=== PATIENT | male | born 1980 | race Caucasian/White ===

== ENCOUNTER 2022-03-19 17:32 | Emergency (ER) | payer BC ==
[~2022-03-19] VITALS: Ht 185.4 cm; Wt 76.4 kg
[2022-03-19 18:42] LABS: BASO % 0.4 % (0.0-1.0); EOS # 0.2 10^3/uL (0.0-0.5); EOS % 2.6 % (0.0-3.0); HEMATOCRIT 47.3 % (42.0-52.0); LYMPH # 1.9 10^3/uL (1.5-5.0); LYMPH % 20.2 % (24.0-44.0); MEAN CORPUSCULAR HGB CONC 31.7 g/dl (32.0-36.5); MEAN CORPUSCULAR VOLUME 88.4 fl (80.0-96.0); MONO # 0.6 10^3/uL (0.0-0.8); NEUTROPHILS # 6.6 10^3/uL (1.5-8.5); NEUTROPHILS % 70.4 % (36.0-66.0); PLATELET COUNT, AUTOMATED 292 10^3/uL (150-450); RED BLOOD COUNT 5.35 10^6/uL (4.30-6.10); WHITE BLOOD COUNT 9.4 10^3/uL (4.0-10.0)
[2022-03-19 19:15] LABS: ALT/SGPT 20 U/L (12-78); AMYLASE 54 U/L (25-115); BILIRUBIN,DIRECT 0.1 MG/DL (0.0-0.2); BILIRUBIN,TOTAL 0.4 MG/DL (0.2-1.0); BLOOD UREA NITROGEN 14 MG/DL (7-18); CALCIUM LEVEL 9.5 MG/DL (8.5-10.1); CARBON DIOXIDE LEVEL 29 MEQ/L (21-32); CHLORIDE LEVEL 105 MEQ/L (98-107); CREATININE FOR GFR 1.12 MG/DL (0.70-1.30); GLOMERULAR FILTRATION RATE > 60.0 (>60); GLUCOSE, FASTING 97 MG/DL (70-100); LIPASE 118 U/L (73-393); POTASSIUM SERUM 3.9 MEQ/L (3.5-5.1); SODIUM LEVEL 138 MEQ/L (136-145); TOTAL PROTEIN 7.3 GM/DL (6.4-8.2)
[2022-03-19] MEDS ORDERED: KETOROLAC 30 MG/ML 1ML VIAL IV ONE ×2 (20:15→21:05)
[2022-03-19] MEDS ORDERED: NS 1,000 ML IV ONE (20:15)
[2022-03-19] MEDS ORDERED: MORPHINE 4 MG/ML 1ML VIAL/SYRINGE IV ONE (21:05)
[2022-03-19] MEDS ORDERED: TAMSULOSIN 0.4 MG CAP PO ONE (21:05)
[2022-03-19] MEDS ORDERED: ONDANSETRON 4MG 2ML VIAL IV ONE (21:05)
[2022-03-19 21:52] VITALS: BP 166/98
[2022-03-19] MEDS ORDERED: FLOM0.4C39 PO (22:02)
[2022-03-19] MEDS ORDERED: KETO10TAB PO (22:02)
[2022-03-19] MEDS ORDERED: OXYCODONE/APAP 5MG/325MG(HOME DOSE PACK) PO ONE (22:05)
[2022-03-19 23:57] LABS: GC DNA AMPLIFICATION NEGATIVE (NEGATIVE)
== END 2022-03-19 22:15 | disposition home or self-care (01) ==
LOC: M ED 17:32
DX: N20.2 Calculus of kidney with calculus of ureter (principal); I10 Essential (primary) hypertension; F17.200 Nicotine dependence, unspecified, uncomplicated; F41.9 Anxiety disorder, unspecified; Z91.040 Latex allergy status
CPT/HCPCS: 74176; 80048; 80076; 81000; 81015; 82150; 83690; 85025; 87086; 87661; 87810; 87850; 96374; 96375; 99284; J1885; J2270; J2405

== ENCOUNTER → 2022-08-18 | Outpatient (CLI) | payer BC ==
[~2022-08-18] MED LIST: FLOM0.4C39 PO; KETO10TAB PO
== END ==
LOC: M PLAIMG 10:33
PROVIDERS: ATTEND Urology
DX: N20.2 Calculus of kidney with calculus of ureter (principal); R16.0 Hepatomegaly, not elsewhere classified; N28.1 Cyst of kidney, acquired; N13.30 Unspecified hydronephrosis; I70.0 Atherosclerosis of aorta

== ENCOUNTER → 2022-09-29 | Outpatient (CLI) | payer BC ==
[2022-09-29 15:55] LABS: HEMATOCRIT 49.1 % (42.0-52.0); HEMOGLOBIN 15.6 g/dl (13.5-17.5); MEAN CORPUSCULAR HEMOGLOBIN 28.4 pg (27.0-33.0); MEAN CORPUSCULAR HGB CONC 31.8 g/dl (32.0-36.5); MEAN CORPUSCULAR VOLUME 89.4 fl (80.0-96.0); PLATELET COUNT, AUTOMATED 365 10^3/uL (150-450); RED BLOOD COUNT 5.49 10^6/uL (4.30-6.10); WHITE BLOOD COUNT 10.6 10^3/uL (4.0-10.0)
[2022-09-29 16:15] LABS: ALBUMIN 4.1 G/DL (3.2-5.2); ALKALINE PHOSPHATASE 79 U/L (46-116); ALT/SGPT 14 U/L (7.0-40); AST/SGOT < 8 U/L (<34); BILIRUBIN,TOTAL 0.5 MG/DL (0.3-1.2); BLOOD UREA NITROGEN 11 MG/DL (9-23); CALCIUM LEVEL 9.8 MG/DL (8.5-10.1); CARBON DIOXIDE LEVEL 30 MMOL/L (20-31); CHLORIDE LEVEL 107 MMOL/L (98-107); CREATININE FOR GFR 1.18 MG/DL (0.70-1.30); GLOMERULAR FILTRATION RATE > 60.0 (>60); GLUCOSE, FASTING 107 MG/DL (60-100); POTASSIUM SERUM 4.5 MMOL/L (3.5-5.1); SODIUM LEVEL 144 MMOL/L (136-145); TOTAL PROTEIN 7.2 G/DL (5.7-8.2)
== END ==
LOC: M PLALAB 12:40
PROVIDERS: ATTEND Urology
DX: N20.1 Calculus of ureter (principal)

== ENCOUNTER 2024-07-24 20:40 | Emergency (ER) | payer SELFPAY ==
[~2024-07-24] VITALS: Ht 185.4 cm; Wt 80.6 kg
[2024-07-25 00:58] LABS: BASO % 0.2 % (0.0-1.0); EOS % 0.1 % (0.0-3.0); HEMATOCRIT 51.8 % (42.0-52.0); HEMOGLOBIN 17.9 g/dl (13.5-17.5); LYMPH # 1.3 10^3/uL (1.5-5.0); LYMPH % 7.2 % (24.0-44.0); MEAN CORPUSCULAR HEMOGLOBIN 29.4 pg (27.0-33.0); MEAN CORPUSCULAR HGB CONC 34.6 g/dl (32.0-36.5); MEAN CORPUSCULAR VOLUME 85.1 fl (80.0-96.0); MONO # 0.8 10^3/uL (0.0-0.8); MONO % 4.6 % (2.0-8.0); NEUTROPHILS # 15.4 10^3/uL (1.5-8.5); NEUTROPHILS % 87.3 % (36.0-66.0); PLATELET COUNT, AUTOMATED 335 10^3/uL (150-450); RED BLOOD COUNT 6.09 10^6/uL (4.30-6.10); WHITE BLOOD COUNT 17.6 10^3/uL (4.0-10.0)
[2024-07-25 01:03] LABS: LIPASE 38 U/L (12-53)
[2024-07-25 01:06] LABS: ALBUMIN 4.7 G/DL (3.2-5.2); ALKALINE PHOSPHATASE 96 U/L (40-129); ALT/SGPT 23 U/L (7.0-40); AST/SGOT < 8 U/L (<34); BILIRUBIN,DIRECT 0.2 MG/DL (<0.4); BILIRUBIN,TOTAL 0.9 MG/DL (0.3-1.2); BLOOD UREA NITROGEN 25 MG/DL (9-23); CALCIUM LEVEL 10.3 MG/DL (8.5-10.1); CARBON DIOXIDE LEVEL 26 MMOL/L (20-31); CHLORIDE LEVEL 103 MMOL/L (98-107); CREATININE FOR GFR 1.01 MG/DL (0.70-1.30); GLOMERULAR FILTRATION RATE > 60.0 (>60); GLUCOSE, FASTING 119 MG/DL (60-100); POTASSIUM SERUM 4.4 MMOL/L (3.5-5.1); SODIUM LEVEL 143 MMOL/L (136-145); TOTAL PROTEIN 8.4 G/DL (5.7-8.2)
[2024-07-25] MEDS ORDERED: BUPR1SUB35 SL (02:31)
[2024-07-25] MEDS ORDERED: cloNIDine HCL 0.1 MG/24 HR PATCH TOP STA (02:43)
[2024-07-25] MEDS: FAMOTIDINE IV BAG 20 MG in IV 1 EA IV ONE (03:15)
[2024-07-25] MEDS: NS (Normal Saline) 0.9% 1,000 ML IV SCH (03:15)
[2024-07-25] MEDS: ONDANSETRON 4MG 2ML VIAL IV ONE (03:15)
[2024-07-25 03:40] VITALS: BP 199/127
[2024-07-25] MEDS: cloNIDine 0.1MG TABLET PO ONE (03:40)
[2024-07-25] MEDS: BUPRENORPHINE/NALOXONE 8-2MG SUBLINGUAL TABLET(SUBOXONE) SL STA (03:41)
[2024-07-25 06:00] VITALS: BP 133/85; TEMP 97.6; O2SAT 97
[2024-07-25] MEDS ORDERED: BUPRENORPHINE/NALOXONE 8-2MG SUBLINGUAL TABLET(SUBOXONE) SL SCH (09:00)
== END 2024-07-25 06:20 | disposition home or self-care (01) ==
LOC: M ED 20:40
DX: F11.13 Opioid abuse with withdrawal (principal); Z91.040 Latex allergy status
CPT/HCPCS: 80048; 80076; 83690; 85025; 87486; 87581; 87633; 87798; 93041; 96365; 96366; 96375; 99284; J2405; S0028

== ENCOUNTER 2024-07-26 17:58 | Emergency (ER) | payer SELFPAY ==
[~2024-07-26] VITALS: Ht 185.4 cm; Wt 84.5 kg
[~2024-07-26 17:58] MED LIST changes: +BUPR1SUB35 SL
[2024-07-27] MEDS: BUPRENORPHINE/NALOXONE 8-2MG SUBLINGUAL TABLET(SUBOXONE) SL ONE (01:01)
[2024-07-27 01:33] VITALS: BP 152/78; TEMP 97.9; O2SAT 98
== END 2024-07-27 01:06 | disposition home or self-care (01) ==
LOC: M ED 17:58
DX: F11.20 Opioid dependence, uncomplicated (principal); F17.200 Nicotine dependence, unspecified, uncomplicated; Z79.899 Other long term (current) drug therapy; Z91.040 Latex allergy status

== ENCOUNTER 2024-07-27 01:49 | Emergency (ER) | payer SELFPAY | END 2024-07-27 02:50 | disposition left against medical advice (07) | LOC: M ED 01:49 | DX: Z53.21 Procedure and treatment not carried out due to patient leaving prior to being seen by health care provider (principal) ==